=== PATIENT | female | born 1985 | race Caucasian/White ===

== ENCOUNTER 2017-08-21 20:03 | Emergency (ER) | payer OTHER ==
[~2017-08-21 20:03] MED LIST: CELEXA20 MG PO; DIFLUNISAL500 MG PO; ORPHENADRINE C100 MG PO; ORTHO TRI-CYCL1 EACH; ULTRAM 50MG50 MG PO; VALIUM10 MG PO; XANAX2 MG PO
== END 2017-08-21 20:06 | disposition left against medical advice (07) ==
LOC: ER 20:03
DX: M25.551 Pain in right hip (principal)